=== PATIENT | female | born 1990 | race Caucasian/White ===

== ENCOUNTER 2019-01-31 07:48 | Emergency (ER) | payer MEDICAID, OTHER ==
[~2019-01-31] VITALS: Ht 152.4 cm; Wt 67.0 kg
[~2019-01-31 07:48] MED LIST: ACET500C5 PO
[2019-01-31 07:52] VITALS: BP 115/72; PULSE 84; RESP 18; Ht 152.4 cm; Wt 67.0 kg
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
[2019-01-31] MEDS ORDERED: IBUPROFEN 800 MG TAB PO ONE (09:00)
[2019-01-31] MEDS ORDERED: IBUP800T48 PO (10:07)
== END 2019-01-31 10:12 | disposition home or self-care (01) ==
LOC: FTE 07:48
DX: S00.83XA Contusion of other part of head, initial encounter (principal); F15.10 Other stimulant abuse, uncomplicated; S70.12XA Contusion of left thigh, initial encounter; R40.2412 Glasgow coma scale score 13-15, at arrival to emergency department; W22.8XXA Striking against or struck by other objects, initial encounter; Y92.9 Unspecified place or not applicable
CPT/HCPCS: 80307; 81025; Z7610